=== PATIENT | female | born 1945 | race Caucasian/White ===

== ENCOUNTER → 2019-09-26 | Outpatient (CLI) | payer MEDICARE ==
--- NOTE | 2019-09-29 14:34 | MR ---
EXAMINATION TYPE: MR brain and iac wo/w con DATE OF EXAM: 09/26/2019 COMPARISON: None HISTORY: Dizziness, visual disturbance, headache TECHNIQUE: Multiplanar, multisequence images of the brain and brainstem with small [id number] images through the internal auditory canals is performed without and with IV contrast, utilizing 5.5 mL intravenous Gadavist . FINDINGS: Diffusion weighted images demonstrate no evidence of a recent infarct or other diffusion ab normality. There is no extra-axial fluid collection. There are scattered hyperintensities on inversi on recovery T2-weighted sequences within the subcutaneous cortical, juxtacortical, periventricular wh ite matter. Approximately 20-30 lesions are present. Largest in the right frontal lobe measures appro ximately 5 to 6 mm on axial image 18. The ventricular system and cisternal spaces are normal in size and appearance. The brain volume is age appropriate. There is no cerebellopontine angle mass, no ab normal enhancement along the internal auditory canal. Midline structures demonstrate normal morphology. The craniocervical junction appears within normal limits. Post contrast images demonstrate no abnormal enhancement. The dural venous sinuses appear pa tent. The visualized sinuses are clear and the globes are intact. IMPRESSION: Nonspecific white matter demyelination could be related to chronic small vessel ischemic change, hypertension, migraine headaches.
== END | disposition home or self-care (01) ==
LOC: RADMRIMAIN 17:56
PROVIDERS: ATTEND Family Medicine
DX: G37.9 Demyelinating disease of central nervous system, unspecified (principal); E78.2 Mixed hyperlipidemia; R42 Dizziness and giddiness
CPT/HCPCS: 93880; 70553; A9585

== ENCOUNTER → 2019-09-26 | Outpatient (CLI) | payer MEDICARE ==
--- NOTE | 2019-09-28 19:13 | US ---
EXAMINATION TYPE: US carotid duplex BILAT DATE OF EXAM: 09/26/2019 COMPARISON: NONE CLINICAL HISTORY: 74-year-old female R42 DIZZINESS,H53.9 VISUAL DISTURBANCE. TECHNIQUE: Carotid duplex ultrasound examination. Indirect Doppler criteria is utilized. FINDINGS: EXAM MEASUREMENTS: RIGHT: Peak Systolic Velocity (PSV) cm/sec ----- Right CCA: 55.2 ----- Right ICA: 75.6 ----- Right ECA: 83.6 ICA/CCA ratio: 1.4 RIGHT: End Diastole cm/sec ----- Right CCA: 15.4 ----- Right ICA: 25.0 ----- Right ECA: 0.0 LEFT: Peak Systolic Velocity (PSV) cm/sec ----- Left CCA: 60.7 ----- Left ICA: 78.2 ----- Left ECA: 59.0 ICA/CCA ratio: 1.3 LEFT: End Diastole cm/sec ----- Left CCA: 17.1 ----- Left ICA: 29.3 ----- Left ECA: 0.0 VERTEBRALS (direction of flow): Right Vertebral: Antegrade Left Vertebral: Antegrade Rhythm: Normal Parts Coordinator notes: No significant stenosis seen. No elevated velocities. IMPRESSION: No hemodynamically significant internal carotid artery stenosis on either side. Criteria for Assigning % of Stenosis / Diameter reduction (Estimation based on the indirect measurements of the internal carotid artery velocities (ICA PSV). 1. Normal (no stenosis)=ICA PSV < 125 cm/s: ratio < 2.0: ICA EDV<40 cm/s. 2. Less than 50% stenosis=ICA PSV < 125 cm/s: ratio < 2.0: ICA EDV<40 cm/s. 3. 50 to 69% stenosis=ICA PSV of 125 to 230 cm/s: ration 2.0 ? 4.0: ICA EDV 40-100 cm/s. 4. Greater than 70% stenosis to near occlusion= ICA PSV > 230 cm/s: ratio > 4.0: ICA EDV > 100 cm/s. 5. Near occlusion= ICA PSV velocities may be low or undetectable: variable ratio and ICA EDV. 6. Total occlusion=unable to detect flow.
== END | disposition home or self-care (01) ==
LOC: RADUSWWP 15:24
PROVIDERS: ATTEND Family Medicine
DX: R42 Dizziness and giddiness (principal); R09.89 Other specified symptoms and signs involving the circulatory and respiratory systems; H53.9 Unspecified visual disturbance; R51 Headache
CPT/HCPCS: 93880

== ENCOUNTER → 2023-09-12 | Outpatient (CLI) | payer MEDICARE ==
--- NOTE | 2023-09-16 15:54 | US ---
EXAMINATION TYPE: US kidneys/renal and bladder DATE OF EXAM: 09/12/2023 COMPARISON: NONE CLINICAL INDICATION: Female, 78 years old with history of N39.0 URINARY TRACT INFECTION, SITE NOT SPE CIFIED; EXAM MEASUREMENTS: Right Kidney: 10.2 x 4.2 x 4.5 cm Left Kidney: 10.0 x 4.1 x 4.1 cm Post Void Residual Volume: 20.2 mL Right Kidney: Wnl Left Kidney: Wnl Bladder: Wnl Bilateral Jets seen: Yes Normal Post Void Residual: Yes There is no evidence for hydronephrosis at this point in time. No nephrolithiasis is seen. No alejandro s are identified. Corticomedullary differentiation is maintained bilaterally. No significant cortical thinning. The urinary bladder is anechoic. No focal wall thickening identified. Bilateral ureteral jets are seen. IMPRESSION: No hydronephrosis or nephrolithiasis.
== END | disposition home or self-care (01) ==
LOC: RADUSWWP 15:43
PROVIDERS: ATTEND Family Medicine
DX: N39.0 Urinary tract infection, site not specified (principal)
CPT/HCPCS: 76770

== ENCOUNTER → 2023-10-02 | Outpatient (CLI) | payer MEDICARE ==
[2023-10-02 10:12] VITALS: BP 117/71; PULSE 78; RESP 16; TEMP 97.9
--- NOTE | 2023-10-02 12:30 | P.HPOB ---
History of Present Illness H&P Date: 10/02/23 Chief Complaint: The patient is here for her routine gynecologic exam This is a 78-year-old -0-1-2 with an LMP of 1993. The patient is here to establish with this office. It has been about 8 years since her last pelvic exam. She previously saw Dr. Diane for her gynecologic care. She states she has had 3 UTIs during the past 4 months. Her main symptoms was burning toward the end of urinating. She had a urine culture that grew E. coli. After the third UTI, she was referred to Dr. Bartholomew, the urologist. She has not yet seen him. She has not been sexually active for more than 2 years. She states she has had only 1 other UTI many years ago prior to this year. She is without gynecologic complaints and denies any postmenopausal bleeding. Review of Systems Her weight has been stable. She denies respiratory or cardiac problems. GI: Occasional gastric reflux which is improved with medication. : She has had 3 UTIs during the past 4 to 6 months and these were treated by her PCP. With the UTIs she did have burning toward the end of voiding. She currently does not have any urinary symptoms. Past Medical History Past Medical History: Coronary Artery Disease (CAD), GERD/Reflux, Hyperlipidemia Additional Past Medical History / Comment(s): Osteopenia. PAST PR[employer]ED [employer] REPA[employer]ER HISTORY: She has no history of STDs. History of Any Multi-Drug Resistant Organisms: ESBL Date of last positivie culture/infection: 07/11/23 MDRO Source:: Urine Past Surgical History: Appendectomy Additional Past Surgical History / Comment(s): RIGHT OVARY REMOVED AT AGE 12 Past Anesthesia/Blood Transfusion Reactions: No Reported Reaction Past Psychological History: No Psychological Hx Reported Smoking Status: Never smoker Past Alcohol Use History: None Reported Past Drug Use History: None Reported Additional History: She has been since 1970. She has not been sexually active after 2020. She is a retired nurse. - Past Family History Father Family Medical History: Cancer Additional Family Medical History / Comment(s): . Colon cancer. Mother Family Medical History: Coronary Artery Disease (CAD), Hypertension Additional Family Medical History / Comment(s): . Brother(s) Additional Family Medical History / Comment(s): following some heart related problems. Medications and Allergies Home Medications Medication Instructions Recorded Confirmed Type Aspirin [Children's Aspirin] 81 mg PO DAILY 10/02/23 10/02/23 History Calcium Carbonate/Vitamin D3 1 tab PO DAILY 10/02/23 10/02/23 History [Calcium 600 mg-Vit D3 5 mcg (200 unit)] Cephalexin [Keflex] 500 mg PO DIRECTED 10/02/23 10/02/23 History Cholecalciferol [Vitamin D3 (25 1 tab PO DAILY 10/02/23 10/02/23 History Mcg = 1000 Iu)] Ezetimibe [Zetia] 10 mg PO DAILY 10/02/23 10/02/23 History Famotidine [Pepcid] 20 mg PO DIRECTED 10/02/23 10/02/23 History Allergies Allergy/AdvReac Type Severity Reaction Status Date / Time clindamycin [From Cleocin] Allergy Rash/Hives Unverified 10/02/23 10:04 Appvmza-LYR-AoO Reductase Allergy Nausea & Unverified 10/02/23 10:04 Inhibitor Vomiting Exam Vital Signs Temp Pulse Resp BP Pulse Ox 10/02/23 10:07 97.9 F 78 16 117/71 100 Intake and Output 10/01/23 10/02/23 10/02/23 22:59 06:59 14:59 Other: Weight 48.988 kg Height 5 foot 1 inch, weight 108 pounds, BMI 20.4. This is a well-developed well-nourished female who is alert and oriented times 3 in no acute distress. HEENT: Within normal limits. NECK: Supple without mass or thyromegaly. CHEST AND LUNGS: Clear to auscultation. HEART: Regular rate and rhythm. BREASTS: Are without mass or discharge. AXILLARY EXAM: Negative for adenopathy. BACK: Negative for CVA tenderness. ABDOMEN: Soft, nontender, without palpable masses. PELVIC EXAM: Normal external genitalia with mild to moderate atrophy. Cervix and vagina appear normal with mild to moderate atrophy. There is no unusual discharge. There is a grade 2 uterine prolapse with grade 1-2 cystocele and grade 1 rectocele. The uterus is midposition, nongravid size and nontender. There are no palpable adnexal masses or tenderness. RECTAL EXAM: Rectovaginal exam is negative for mass or tenderness and is negative for occult blood. EXTREMITIES: Nontender. IMPRESSION: 1. 78-year-old menopausal female with vaginal prolapse including a grade 2 uterine prolapse, grade 1-2 cystocele and grade 1 rectocele. 2. Recent frequent urinary tract infections during the past 4 to 6 months during which she has had 3 UTIs treated by her PCP. No current urinary symptoms and no significant physical findings on exam today. PLAN: 1. Pap smear was performed. I will try to access her records from Dr. Diane's office to see if she has been adequately screened for cervical cancer. If christiano burdick's Pap smear is negative and she has had documented regular cervical cancer screening before the age of 65, we will plan on discontinuing Pap smears. 2. Self breast awareness was discussed with the patient. We have also discussed symptoms associated with inflammatory breast cancer. 3. Screening mammogram was done in July 2023 at [facility] according to the patient and she states it was normal. She will repeat this after 1 year. 4. Osteoporosis prevention was discussed. I have stressed the importance of adequate calcium, vitamin D and regular exercise. Recommended amounts of calcium and vitamin D were also discussed. She states she had a recent bone density test in July 2023 at [facility]. She states that showed osteopenia. Plan on repeating that in approximately 2 years. 5. We have had a long discussion regarding her multiple UTIs during the past 4 to 6 months. I recommended that she try to not hold urine longer than necessary and to try to empty her bladder as completely as possible when she does void. She is to do this by relaxing and giving herself enough time. She will avoid bearing down to empty her bladder more. We have discussed a trial of estrogen vaginal cream. We can see if this decreases her UTI risk by treating genital atrophy especially around the urinary opening. 1 sample tube of Premarin vaginal cream was given to the patient which she can insert into the vagina, 1 g twice weekly. She will also use a small amount at the urinary opening. She is requesting a generic estrogen vaginal cream. A prescription for estradiol vaginal cream, 1 g into the vagina 2 times weekly, will be sent to [facility] in [place]. 6. She was advised to return in one year for her annual well woman exam and as needed.
== END ==
LOC: WWCWWP 09:36
PROVIDERS: ATTEND Obstetrics & Gynecology
DX: Z01.419 Encounter for gynecological examination (general) (routine) without abnormal findings (principal); N81.6 Rectocele; N39.0 Urinary tract infection, site not specified; N81.10 Cystocele, unspecified; B96.20 Unspecified Escherichia coli [E. coli] as the cause of diseases classified elsewhere; Z78.0 Asymptomatic menopausal state; Z88.1 Allergy status to other antibiotic agents; Z88.8 Allergy status to other drugs, medicaments and biological substances

== ENCOUNTER → 2023-12-13 | Outpatient (CLI) | payer MEDICARE ==
--- NOTE | 2023-12-13 13:50 | US ---
EXAMINATION TYPE: US venous doppler duplex UE LT DATE OF EXAM: 12/13/2023 COMPARISON: NONE CLINICAL INDICATION: Female, 78 years old with history of LLE; M79.602 pain in swelling in left upper extrem; swelling in left neck/clavicle area SIDE PERFORMED: Left Left Arm: Echoes seen in left IJV with no compression or blood flow seen. Grayscale, color doppler, spectral doppler imaging performed of the deep veins of the upper extremiti es. There is normal flow, compressibility and vascular waveforms. IMPRESSION: Left internal jugular vein thrombus. A [place] level critical message alert has been initiated for [facility] via the [facility] [facility] on 12/13/2023 1:48 PM. This message alert has been sent to [facility] via the [email or web address] ences provided by the clinician for the receipt of Radiology Critical Findings. Message ID [id number].
== END | disposition home or self-care (01) ==
LOC: RADUSWWP 13:00
PROVIDERS: ATTEND Internal Medicine Hematology & Oncology
DX: I82.C12 Acute embolism and thrombosis of left internal jugular vein (principal)